=== PATIENT | female | born 1995 | race American Indian/Alaskan Native ===

== ENCOUNTER 2019-07-31 18:37 | Emergency (ER) | payer OTHER ==
[2019-07-31 18:51] VITALS: BP 126/76
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
== END 2019-07-31 21:00 | disposition left against medical advice (07) ==
LOC: ED 18:37
DX: R10.9 Unspecified abdominal pain (principal); Z53.21 Procedure and treatment not carried out due to patient leaving prior to being seen by health care provider
CPT/HCPCS: 86900; 86901